=== PATIENT | female | born 1970 | race Caucasian/White ===

== ENCOUNTER 2025-09-01 20:59 | Emergency (ER) | payer SELFPAY ==
[2025-09-01] MEDS ORDERED: LORazepam 2 MG/ML VIAL ONE (21:33)
[2025-09-01] MEDS ORDERED: ONDANSETRON 4 MG/2 ML VIAL ONE (21:34)
[2025-09-01] MEDS ORDERED: NA CHLORIDE 0.9% 1,000 ML ONE (21:34)
[2025-09-01 21:41] LABS: Absolute Lymphocytes (CBC) 2.1 K/uL (0.7-4.9); Hematocrit 41.0 % (36.0-45.0); Hemoglobin 14.0 g/dL (12.0-15.0); MCH 29.8 pg (27.0-35.0); MCHC 34.1 g/dL (32.0-36.0); MCV 87.3 fL (80-100); MPV 8.4 fL (7.6-11.3); Nucleated RBC Absolute Count 0.0 (0-0); Nucleated Red Blood Cells % 0.0 % (0-0); RBC Red Blood Cell Count 4.70 M/uL (3.86-4.86); White Blood Count 9.00 thou/uL (4.3-10.9)
[2025-09-01 21:56] LABS: ALT/SGPT 24.0 U/L (13-56); AST/SGOT 15.0 U/L (15-37); Albumin 3.7 g/dL (3.4-5.0); Albumin/Globulin Ratio 1.0 (1.1-1.8); Alkaline Phosphatase 73.0 U/L (45-117); Anion Gap 10.1 mEq/L (5.0-15.0); BUN Blood Urea Nitrogen 15.0 mg/dL (7-18); Globulin 3.6 g/dL (2.3-3.5); Glucose Level 161.0 mg/dL (74-106); Potassium 4.1 mEq/L (3.5-5.1)
--- NOTE | 2025-09-02 02:07 | EDPHYS ---
Physician Documentation [facility] Name: Karrie Mari Age: 55 yrs Sex: Female : 1970 Arrival Date: 09/01/2025 Time: 20:59 Bed 14 Private MD: ED Physician Andrew Rodriguez HPI: 09/01 21:12 This 55 yrs old Female presents to ER via EMS with complaints of Anxiety. sp4 09/02 19:59 55-year-old female presents with complaint of acute anxiety and agitation after sp4 consuming edible cannabis gummy. Patient presents with EMS. Historical: - Allergies: 09/01 21:12 No Known Allergies; af3 - Home Meds: 21:12 None [Active]; af3 - PMHx: 21:12 Kidney stone; af3 - Immunization history:: Adult Immunizations not up to date. - Infectious Disease History:: Denies. - Social history:: Smoking status: Patient denies any tobacco usage or history of. - Family history:: not pertinent. ROS: 09/02 19:59 Constitutional: Negative for fever, chills, and weight loss, positive for acute sp4 anxiety positive for acute adverse reaction to cannabis gummy All other systems are negative, Exam: 19:59 Constitutional: This is a well developed, well nourished patient who is awake, alert, sp4 and in no acute distress. Head/Face: Normocephalic, atraumatic. Eyes: Pupils equal round and reactive to light, extra-ocular motions intact. Lids and lashes normal. Conjunctiva and sclera are not injected. Cornea within normal limits. Periorbital areas with no swelling, redness, or edema. ENT: Nares patent. No nasal discharge, no septal abnormalities noted. Tympanic membranes are normal and external auditory canals are clear. Oropharynx with no redness, swelling, or masses, exudates, or evidence of obstruction, uvula midline. Mucous membranes moist. Neck: Trachea midline, no thyromegaly or masses palpated, and no cervical lymphadenopathy. Supple, full range of motion without nuchal rigidity, or vertebral point tenderness. Chest/axilla: Normal chest wall appearance and motion. Nontender with no deformity. No lesions are appreciated. Cardiovascular: Regular rate and rhythm with a normal S1 and S2. No gallops, murmurs, or rubs. No pulse deficits. Respiratory: Lungs have equal breath sounds bilaterally, clear to auscultation and percussion. No rales, rhonchi or wheezes noted. No increased work of breathing, no retractions or nasal flaring. Abdomen/GI: Soft, with normal bowel sounds. No distension or tympany. No guarding or rebound. No evidence of tenderness throughout. Back: No spinal tenderness. No costovertebral tenderness. Skin: Warm, dry with normal turgor. Normal color with no rashes, no lesions, and no evidence of cellulitis. MS/ Extremity: Pulses equal, no cyanosis. Neurovascular intact. Full, normal range of motion. Neuro: Awake and alert, GCS 15, oriented to person, place, time, and situation. Cranial nerves II-XII grossly intact. Motor strength 5/5 in all extremities. Sensory grossly intact. Psych: Awake, alert, with orientation to person, place and time. Behavior, mood, and affect are within normal limits 19:59 ECG was reviewed by the Attending Physician. EKG at 2111 sinus rhythm with sinus arrhythmia otherwise normal. Vital Signs: 09/01 21:09 BP 155 / 73; Pulse 73; Resp 18; Temp 98.2; Pulse Ox 100% on R/A; Weight 113.4 kg; af3 Height 5 ft. 4 in. ; 22:40 BP 147 / 90; Pulse 74; Resp 18; Pulse Ox 100% on 2 lpm NC; af3 23:34 BP 116 / 69; Pulse 70; Resp 18; Pulse Ox 99% on 2 lpm NC; af3 09/02 00:30 BP 123 / 78; Pulse 61; Resp 16; Pulse Ox 100% on 3 lpm NC; af3 02:52 BP 122 / 71; Pulse 98; Resp 18; Pulse Ox 97% on R/A; af3 09/01 21:09 Body Mass Index 42.91 (113.40 kg, 162.56 cm) af3 Ami Coma Score: 19:59 Eye Response: spontaneous(4). Motor Response: obeys commands(6). Verbal Response: sp4 oriented(5). Total: 15. MDM: 09/01 21:12 Medical Screening Exam initiated sp4 09/02 20:02 Differential diagnosis: cardiac arrhythmia, CVA, generalized weakness, sepsis, syncope, sp4 vertigo. 20:02 Data reviewed: vital signs, nurses notes, EMS record, old medical records, lab test sp4 result(s), EKG. Consideration of Admission/Observation Escalation of care including admission/observation considered. ED course: EKG 2111 normal, patient's anxiety has improved. After period of monitoring patient deemed stable for discharge home. Patient was advised to abstain from cannabis Gummies. 09/01 21:12 Order name: CBC with Diff; Complete Time: : sp4 09/01 21:12 Order name: CMP; Complete Time: : sp4 09/01 21:12 Order name: IV Saline Lock; Complete Time: : sp4 09/01 21:12 Order name: Labs collected and sent; Complete Time: : sp4 EC/19 21:11 Rate is 69 beats/min. Rhythm is irregular, Sinus arrythmia. QRS [place] is Normal. LA sp4 interval is normal. QRS interval is normal. QT interval is normal. No Q waves. T waves are Normal. No ST changes noted. Clinical impression: No evidence of ischemia. Interpreted by me. Reviewed by me. Administered Medications: 21:43 Drug: Ativan IVP 2 mg IVP once Route: IVP; Site: left antecubital; af3 09/02 02:54 Follow up: Response: No adverse reaction af3 09/01 21:43 Drug: Ondansetron IVP 4 mg IVP once; over 2 minutes Route: IVP; Site: left antecubital; af3 09/02 02:54 Follow up: Response: No adverse reaction af3 09/01 21:43 Drug: NS 0.9% IV 1000 ml IV at 1000 ml once; to be given as a bolus over 60 minutes af3 Route: IV; Rate: 1000 ml; Site: left antecubital; 09/02 02:53 Follow up: Response: No adverse reaction; IV Status: Completed infusion; IV Intake: af3 1000ml Disposition: 20:02 Chart complete. sp4 Disposition Summary: 09/02/25 02:06 Discharge Ordered Notes: Location: Home sp4 Problem: new sp4 Symptoms: have improved sp4 Condition: Stable sp4 Diagnosis - Acute cannabis intoxication, acute anxiety attack sp4 Followup: sp4 - With: Private Physician - When: 7 - 10 days - Reason: Recheck today's complaints Discharge Instructions: - Discharge Summary Sheet sp4 - Managing Anxiety, Adult sp4 Forms: - Patient Portal Instructions sp4 Signatures: Dispatcher [employer] Andrew Bell MD MD sp4 Adela Brooks RN RN af3 Corrections: (The following items were deleted from the chart) 09/01 21:12 21:12 CBC+H.LAB.BRZ ordered. EDMS EDMS 21:12 21:12 COMPREHENSIVE METABOLIC PANEL+C.LAB.BRZ ordered. EDMS EDMS 21:13 21:12 PMHx: None; af3 af3
--- NOTE | 2025-09-02 02:07 | ER ---
Nurse's Notes [facility] Name: Karrie Mari Age: 55 yrs Sex: Female : 1970 Arrival Date: 09/01/2025 Time: 20:59 Bed 14 Private MD: Diagnosis: Acute cannabis intoxication, acute anxiety attack Presentation: 09/01 21:09 Chief complaint: EMS states: Pt took 500mg THC edibles, c/o palpitations, dry mouth, af3 and anxiety. Coronavirus screen: At this time, the client does not indicate any symptoms associated with coronavirus-19. Ebola Screen: No symptoms or risks identified at this time. Initial Sepsis Screen: Does the patient meet any 2 criteria? No. Patient's initial sepsis screen is negative. Does the patient have a suspected source of infection? No. Patient's initial sepsis screen is negative. Risk Assessment: Do you want to hurt yourself or someone else? Patient reports no desire to harm self or others. Onset of symptoms was September 01, 2025. 21:09 Method Of Arrival: EMS: [facility] af3 21:09 Acuity: KACEY 3 af3 Triage Assessment: 21:12 General: Appears in no apparent distress. uncomfortable, well groomed, well developed, af3 Behavior is cooperative, appropriate for age, anxious. Pain: Denies pain. Neuro: Level of Consciousness is awake, alert, obeys commands, Oriented to person, place, time, situation, Appropriate for age. Cardiovascular: Patient's skin is warm and dry. Respiratory: Airway is patent Respiratory effort is even, unlabored, Respiratory pattern is regular, symmetrical. Derm: Skin is intact, Skin is pink, warm \T\ dry. normal. Historical: - Allergies: 21:12 No Known Allergies; af3 - Home Meds: 21:12 None [Active]; af3 - PMHx: 21:12 Kidney stone; af3 - Immunization history:: Adult Immunizations not up to date. - Infectious Disease History:: Denies. - Social history:: Smoking status: Patient denies any tobacco usage or history of. - Family history:: not pertinent. Screenin:00 [facility] ED Fall Risk Assessment (Adult) History of falling in the last 3 months, af3 including since admission No falls in past 3 months (0 pts) Confusion or Disorientation No (0 pts) Intoxicated or Sedated No (0 pts) Impaired Gait No (0 pts) Mobility Assist Device Used No (0 pt) Altered Elimination No (0 pt) Score/Fall Risk Level 0 - 2 = Low Risk Oriented to surroundings, Maintained a safe environment, Educated pt \T\ family on fall prevention, incl call for assistance when getting out of bed. 22:00 Abuse screen: Denies threats or abuse. Denies injuries from another. Nutritional af3 screening: No deficits noted. Tuberculosis screening: No symptoms or risk factors identified. Assessment: 21:30 General: see triage assessment . af3 22:39 Reassessment: Patient appears in no apparent distress at this time. Patient and/or af3 family updated on plan of care and expected duration. Pain level reassessed. Patient is alert, oriented x 3, equal unlabored respirations, skin warm/dry/pink. 23:34 Reassessment: Patient appears in no apparent distress at this time. Patient and/or af3 family updated on plan of care and expected duration. Pain level reassessed. Patient is alert, oriented x 3, equal unlabored respirations, skin warm/dry/pink. 09/02 00:30 Reassessment: Patient appears in no apparent distress at this time. Patient and/or af3 family updated on plan of care and expected duration. Pain level reassessed. Patient is alert, oriented x 3, equal unlabored respirations, skin warm/dry/pink. 02:52 Reassessment: Patient appears in no apparent distress at this time. Patient and/or af3 family updated on plan of care and expected duration. Pain level reassessed. Patient is alert, oriented x 3, equal unlabored respirations, skin warm/dry/pink. Vital Signs: 09/01 21:09 BP 155 / 73; Pulse 73; Resp 18; Temp 98.2; Pulse Ox 100% on R/A; Weight 113.4 kg; af3 Height 5 ft. 4 in. ; 22:40 BP 147 / 90; Pulse 74; Resp 18; Pulse Ox 100% on 2 lpm NC; af3 23:34 BP 116 / 69; Pulse 70; Resp 18; Pulse Ox 99% on 2 lpm NC; af3 09/02 00:30 BP 123 / 78; Pulse 61; Resp 16; Pulse Ox 100% on 3 lpm NC; af3 02:52 BP 122 / 71; Pulse 98; Resp 18; Pulse Ox 97% on R/A; af3 09/01 21:09 Body Mass Index 42.91 (113.40 kg, 162.56 cm) af3 Ami Coma Score: 19:59 Eye Response: spontaneous(4). Motor Response: obeys commands(6). Verbal Response: sp4 oriented(5). Total: 15. ED Course: 09/01 21:09 Patient arrived in ED. af3 21:11 Andrew Rodriguez MD is Attending Physician. sp4 21:12 Triage completed. af3 21:12 Arm band placed on. af3 21:14 Adela Brooks RN is Primary Nurse. af3 22:00 Patient has correct armband on for positive identification. Bed in low position. Call af3 light in reach. Provided Education on: plan of care . 22:00 No provider procedures requiring assistance completed. Maintain EMS IV. Dressing af3 intact. Good blood return noted. Site clean \T\ dry. Gauge \T\ site: 20g L AC . 09/02 02:53 IV discontinued, intact, bleeding controlled, No redness/swelling at site. Pressure af3 dressing applied. Administered Medications: 09/01 21:43 Drug: Ativan IVP 2 mg IVP once Route: IVP; Site: left antecubital; af3 09/02 02:54 Follow up: Response: No adverse reaction af3 09/01 21:43 Drug: Ondansetron IVP 4 mg IVP once; over 2 minutes Route: IVP; Site: left antecubital; af3 09/02 02:54 Follow up: Response: No adverse reaction af3 09/01 21:43 Drug: NS 0.9% IV 1000 ml IV at 1000 ml once; to be given as a bolus over 60 minutes af3 Route: IV; Rate: 1000 ml; Site: left antecubital; 09/02 02:53 Follow up: Response: No adverse reaction; IV Status: Completed infusion; IV Intake: af3 1000ml Medication: 09/01 22:00 VIS not applicable for this client. af3 Intake: 09/02 02:53 IV: 1000ml; Total: 1000ml. af3 Outcome: 02:06 Discharge ordered by . sp4 02:53 Discharged to home ambulatory, af3 02:53 Condition: stable 02:53 Discharge instructions given to patient, Instructed on discharge instructions, follow up and referral plans. Demonstrated understanding of instructions, follow-up care, 02:53 Patient left the ED. af3 Signatures: Andrew Rodriguez MD MD sp4 Adela Brooks RN RN af3 Corrections: (The following items were deleted from the chart) 09/01 21:13 21:12 PMHx: None; af3 af3
[2025-09-02 08:32] VITALS: TEMP 98.2
[2025-09-02 08:38] VITALS: BP 122/71; O2SAT 97
== END 2025-09-02 02:53 | disposition home or self-care (01) ==
LOC: ER 20:59
DX: F12.929 Cannabis use, unspecified with intoxication, unspecified (principal)
CPT/HCPCS: 36415; 80053; 85025; 93005; 96361; 96374; 96375; 99284; J2405; J7030